=== PATIENT | male | born 1990 | race Hispanic/Latino ===

== ENCOUNTER 2018-01-10 04:35 | Emergency (ER) | payer OTHER | END 2018-01-10 05:14 | disposition home or self-care (01) | LOC: EDH 04:35 | DX: B34.9 Viral infection, unspecified (principal); Z88.2 Allergy status to sulfonamides; Z98.890 Other specified postprocedural states | CPT/HCPCS: 99282 ==

== ENCOUNTER 2019-08-04 06:05 | Emergency (ER) | payer SELFPAY | END 2019-08-04 06:40 | disposition home or self-care (01) | LOC: EDH 06:05 | DX: T78.49XA Other allergy, initial encounter (principal); Z88.2 Allergy status to sulfonamides; X58.XXXA Exposure to other specified factors, initial encounter | CPT/HCPCS: 99282 ==